=== PATIENT | male | born 1980 | race Caucasian/White ===

== ENCOUNTER 2023-03-24 17:05 | Emergency (ER) | payer OTHER, SELFPAY ==
[2023-03-24 17:34] VITALS: BP 163/98; PULSE 72; RESP 20; TEMP 36.5; O2SAT 100
--- NOTE | 2023-03-24 18:14 | ED.DENTAL ---
HPI - Dental/Oral General Chief complaint: Dental/Oral Stated complaint: left side tooth pain Source: patient Mode of arrival: ambulatory History of Present Illness HPI Narrative: 42-year-old male presented for complaint of left lower dental pain and swelling over the past 4 days. He states he lost a filling at this site a few months ago. Taking ibuprofen 800mg with temporary relief. Contacted his dentist today who offered an appointment in 2 weeks. However he declined and states he wants a new dentist. Denies difficulty maintaining secretions, n/v/d/f/c. Complaint: tooth pain Related Data Allergies Allergy/AdvReac Type Severity Reaction Status Date / Time No Known Allergies Allergy Verified 03/24/23 17:49 Review of Systems Review of Systems: CONSTITUTIONAL: Denies body aches, fever, chills ENT: Denies rhinorrhea, congestion, sore throat, or otalgia. Reports dental pain CARDIOVASCULAR: Denies chest pain, palpitations RESPIRATORY: Denies cough or dyspnea. SKIN: Denies rash, itching, or wounds. MUSCULOSKELETAL: Denies myalgia. NEUROLOGIC: Denies headache, numbness, tingling, or weakness. [facility] Past Medical History Medical History (Updated 03/24/23 @ 18:34 by Violetta Tanner, OYSTER SHUCKER) No pertinent past medical history Comments At time of signature, I have reviewed and agree with nursing past medical, surgical, social and family history unless otherwise noted. Please see nursing chart for further information. There is no relevant family history pertinent to the presenting complaint Exam Narrative: GENERAL: Appears in pain; no acute distress. HEAD: Normocephalic, atraumatic. EYES: EOMI. No redness or drainage. Conjunctivae normal. ENT: Dental pain location of #22, broken tooth with mild gum swelling, tender, no drainage; Mild soft tissue swelling. Poor dentition throughout, missing teeth and broken teeth. Mucous membranes pink and moist. Throat normal. Uvula midline. NECK: Normal AROM. No lymphadenopathy. Discussed physical exam findings. Advised supportive measures and signs/symptoms to go to the ER. Pt is appropriate for outpt treatment and f/u. CHEST: No respiratory distress. HEART: Regular rate and rhythm. No murmur appreciated. SKIN: Warm, dry, no rash. Normal skin turgor. NEURO: No focal deficits. Alert and oriented x3. Gait steady. HENMT: Teeth image: 1. area of swelling and pain Course Course Emergency Course: Patient is aware of diagnosis, understands and agrees to treatment plan. Anticipatory guidance given. Patient agrees to follow-up as directed and is aware of reasons to seek care at the emergency department. Portions of this record may have been created with voice recognition software Level of Care: Express Care Visit Vital Signs Vital signs: Vital Signs Temperature 97.7 F 03/24/23 17:34 Pulse Rate 72 03/24/23 17:34 Respiratory Rate 20 03/24/23 17:34 Blood Pressure 163/98 H 03/24/23 17:34 Pulse Oximetry 100 03/24/23 17:34 Oxygen Delivery Room Air 03/24/23 17:34 Temperature 97.7 F 03/24/23 17:34 Pulse Rate 72 03/24/23 17:34 Respiratory Rate 20 03/24/23 17:34 Blood Pressure 163/98 H 03/24/23 17:34 Pulse Oximetry 100 03/24/23 17:34 Oxygen Delivery Room Air 03/24/23 17:34 MDM - Dental/Oral MDM Narrative Medical decision making narrative: Patients pain and complaint coupled with physical findings are consistent with dental abscess. There are no focal signs of space occupying lesions that are compromising to the airway; no dysphagia, odynophagia, dysphonia, or dyspnea. No uvular deviation or soft palate edema. The floor of the mouth is soft with no signs of Miles's Angina; no induration below mandible, no neck pain. Patient is without trismus or drooling and able to swallow secretions. Patient is felt appropriate for discharge home with dental follow up. Advised him to make the appointment that was offered by the dentist
== END 2023-03-24 18:28 | disposition home or self-care (01) ==
PROVIDERS: Emergency Provider Nurse Practitioner Family
DX: K04.7 Periapical abscess without sinus (principal)
CPT/HCPCS: 99203; G0463

== ENCOUNTER 2023-05-08 16:35 | Emergency (ER) | payer OTHER, SELFPAY ==
[2023-05-08 16:52] VITALS: BP 154/96; PULSE 77; RESP 18; TEMP 36.8; O2SAT 100
--- NOTE | 2023-05-08 17:21 | ED.DENTAL ---
HPI - Dental/Oral General Chief complaint: Dental/Oral Stated complaint: Toothache Time Seen by Provider: 05/08/23 17:21 Source: patient, RN notes reviewed and old records reviewed Mode of arrival: ambulatory Limitations: no limitations History of Present Illness HPI Narrative: 42-year-old male who presents to [facility] with complaints of dental pain to #22 tooth since last night. Patient reports that he was seen in clinic on the 24 of March for same tooth and took Amoxicillin. Patient reports redness and swelling again present around tooth with increased pain with eating, has taken some Ibuprofen for his discomfort. Patient reports that he has dental appointment next month. MD Complaint: tooth pain Location: Tooth # (22) Onset (ago): day(s) (day 2 of symptoms.) Severity scale (1-10): 2 Exacerbating factors: chewing Treatment prior to arrival: oral analgesic (Ibuprofen) Related Data Allergies Allergy/AdvReac Type Severity Reaction Status Date / Time No Known Allergies Allergy Verified 05/08/23 16:46 Review of Systems Review of Systems: CONSTITUTIONAL: Denies fever, chills, or sweats. ENT: Denies rhinorrhea, congestion, sore throat, or otalgia. Reports dental pain #22 tooth with tooth broken and noted caries. CARDIOVASCULAR: Denies chest pain, palpitations, or edema. RESPIRATORY: Denies cough or dyspnea. SKIN: Denies rash or itching. MUSCULOSKELETAL: Denies myalgia. NEUROLOGIC: Denies headache All systems reviewed & are unremarkable except as noted in HPI and below PMFSH Past Medical History Medical History No pertinent past medical history Social History Social History (Updated 05/10/23 @ 23:05 by Evelin Tovar NP) Smoking status: Never smoker Alcohol intake: current Alcohol use details: social Substance use type: does not use Living arrangements: with family Gender identity (if verbalized by the patient): Male Comments At time of signature, agree with nursing past medical, surgical, social and family history. There is no relevant family history pertinent to the presenting complaint Exam Narrative: GENERAL: Well-appearing, well-nourished, and in no acute distress. HEAD: Normocephalic, atraumatic. EYES: PERRLA and EOMI. ENT: Nares clear, no rhinorrhea or epistaxis. Mucous membranes moist. Redness and swelling of gum around #22 tooth with tooth broken and obvious caries, No trismus noted or any Miles angina NECK: Supple.no lymphadenopathy CHEST: Clear to auscultation. No respiratory distress.SAO2 100% on room air HEART: Regular rate and rhythm. No murmur heard. Normal peripheral pulses. SKIN: Warm, dry, no rash. NEURO: No focal deficits. Alert and oriented x3. Course Course Emergency Course: Patient is aware of diagnosis, understands and agrees to treatment plan. Anticipatory guidance given. Patient agrees to follow-up as directed and is aware of reasons to seek care at the emergency department. Portions of this record may have been created with voice recognition software Level of Care: Express Care Visit Vital Signs Vital signs: Vital Signs Temperature 36.8 C 05/08/23 16:52 Pulse Rate 77 05/08/23 16:52 Respiratory Rate 18 05/08/23 16:52 Blood Pressure 154/96 H 05/08/23 16:52 Pulse Oximetry 100 05/08/23 16:52 Oxygen Delivery Room Air 05/08/23 16:52 Temperature 36.8 C 05/08/23 16:52 Pulse Rate 77 05/08/23 16:52 Respiratory Rate 18 05/08/23 16:52 Blood Pressure 154/96 H 05/08/23 16:52 Pulse Oximetry 100 05/08/23 16:52 Oxygen Delivery Room Air 05/08/23 16:52 Reviewed MDM - Dental/Oral MDM Narrative Medical decision making narrative: Patients pain and complaint coupled with physical findings are consistent with dentalgia. There are no focal signs of space occupying lesions that are compromising to the airway; no dysphagia, odynophagia, dysphonia, or dyspnea. No uvular de
== END 2023-05-08 17:40 | disposition home or self-care (01) ==
PROVIDERS: Emergency Provider Registered Nurse
DX: K02.9 Dental caries, unspecified (principal); K04.7 Periapical abscess without sinus
CPT/HCPCS: 99213; G0463